=== PATIENT | male | born 1965 | race Caucasian/White ===

== ENCOUNTER 2023-09-03 02:48 | Emergency (ER) | payer OTHER, SELFPAY ==
[2023-09-03 02:51] VITALS: BP 153/86
--- NOTE | 2023-09-03 03:35 | ED.GENMED ---
History of Present Illness
General
Chief Complaint: Headache
Source: patient and family
Exam Limitations: none
Time Seen by Provider: 09/03/23 03:18
Nursing documentation reviewed up to this point in time: agreed with
Travel History
Have you had any contact with someone who has COVID-19?: No
Do you have any symptoms of coronavirus? Fever > 100 degrees, chills, cough, shortness of breath, sore throat, loss of taste or smell, muscle aches, or headache?: No
History of Present Illness
History of Present Illness:
58-year-old male presents with headache. He states that he had a cough for the last 4 to 5 days. He reports that today after coughing he developed a headache that waxes and wanes but returns each time he coughs. States that he was seen by his
primary care provider and started on an antibiotic and methylprednisolone. It was presumed that he had pneumonia. Denies fever, chills, nausea or vomiting. Reports no chest pain or shortness of breath. States that the cough is a dry cough.
Review of Systems
Review of Systems
Allergies reviewed?: Yes
All Other Systems: ROS reviewed and negative except as documented in HPI and ROS
Constitutional: Reports sleep disturbance
EENT: Reports no symptoms
Respiratory: Reports cough; Denies trouble breathing
Cardiac: Reports no symptoms
ABD/GI: Reports no symptoms
: Reports no symptoms
Musculoskeletal: Reports no symptoms
Skin: Reports no symptoms
Neurological: Reports no symptoms
Endocrine: Reports no symptoms
Hematologic/Lymphatic: Reports no symptoms
Psychiatric: Reports no symptoms
Phy Exam
General Physical Exam
General Presentation: well appearing
General age: appears stated age
General Skin: warm and dry
General Habitus: normal
General Mental: alert and anxious
Cardiovascular Exam
Cardiovascular Exam: regular rate/rhythm and no edema
Pulmonary Exam
Pulmonary Exam: lungs clear and no respiratory distress
Cough: coarse cough
Neurological Exam
Neurological Exam: alert and oriented x3
Musculoskeletal Exam
Musculoskeletal Exam: full ROM and neck pain
Skin Exam
Skin Exam: normal color and warm/dry
Psychiatric Exam
Psychiatric Exam: normal mood/affect
Course
Orders/Labs/Results
Orders:
Orders
09/03/23 03:33
0.9% Sodium Chloride 500 ml [Nss] 500 ml IV BOLUS
Dexamethasone Sod Phosphate [Decadron] 10 mg IV NOW STA
Diphenhydramine [Benadryl] 25 mg IV NOW STA
Metoclopramide [Reglan] 10 mg IV NOW STA
09/03/23 03:34
CT Head W/o Iv Contrast Urgent
Comment:
Reason For Exam: headache
CR Chest - 2 Views Urgent
Comment:
Reason For Exam: cough
09/03/23 03:49
Complete Blood Count/With Diff Urgent
Erythrocyte Sed Rate Urgent
PTT Urgent
Prothrombin Time Urgent
09/03/23 04:18
CMP [Comprehensive Metabolic Panel] Urgent
Abnormal Lab Results
09/03/23 09/03/23
03:49 04:18
WBC 17.4 H 10^3/uL
(4.8-10.8)
Hgb 11.0 L g/dL
(13.0-18.0)
Hct 35.1 L %
(39.0-52.0)
MCV 62.9 L fL
(80.0-94.0)
MCH 19.7 L pg
(27.0-31.0)
MCHC 31.3 L g/dL
(33.0-37.0)
RDW 15.7 H %
(11.5-14.5)
MPV 10.8 H fL
(7.4-10.4)
Abs Immat Gran (auto) 0.2 H 10^3/uL
(0-0.05)
Absolute Neuts (auto) 14.7 H 10^3/uL
(1.4-6.5)
Absolute Lymphs (auto) 1.1 L 10^3/uL
(1.2-3.4)
Absolute Monos (auto) 1.2 H 10^3/uL
(0.1-0.6)
Immature Gran % 1.4 H %
(0-0.5)
Neutrophils % 84.7 H %
(42.2-75.2)
Lymphocytes % 6.5 L %
(20.5-51.1)
ESR 57 H mm/hour
(0-20)
BUN 22 H mg/dl
(9-20)
Glucose 135 H mg/dl
(70-99)
09/03/23 03:49
09/03/23 04:18
Vital Signs
Initial and Last Documented VS:
Initial Vital Signs
Temp Pulse Resp BP Pulse Ox
98.1 F 92 18 153/86 95
09/03/23 02:51 09/03/23 02:51 09/03/23 02:51 09/03/23 02:51 09/03/23 02:51
Last Documented Vital Signs
Temp Pulse Resp BP Pulse Ox
98.1 F 80 18 165/93 95
09/03/23 02:51 09/03/23 04:36 09/03/23 04:36 09/03/23 04:36 09/03/23 04:36
MDM/Problems Addressed
Differential Diagnosis Includes:
Bronchitis, pneumonia, headache
*Critical Care Note
Total Time (30-74mins, 75-104mins- exclusive of procedures): Not Applicable
Update Note
Update Note:
CT head without IV contrast
IMPRESSION:
No hemorrhage or other acute intracranial abnormality.
Finalized at 4:50 AM EST
Patient does report some improvement in the headache. He will remain hydrated. He will continue to take his antibiotic for the pneumonia seen on x-ray.
ED Attending Note
-
Portions of this chart may have been created with voice recognition software.� Occasional wrong word or��sound alike� substitutions may have occurred due to the inherent limitations of voice recognition software.
Discharge Plan
Departure
Patient Disposition: Home (Routine Discharge)
Date of Disposition: 09/03/23
Time of Disposition: 05:46
Patient with high blood pressure during this ER visit?: No
Condition: Good
Discharge Problem:
Headache, Pneumonia
Instructions: BLOOD PRESSURE, Pneumonia
Prescriptions:
New
promethazine-codeine 6.25-10 mg/5 mL syrup
5 ml PO Q6H PRN (Reason: Cough) Qty: 118 0RF
No Action
cephalexin 500 MG capsule
500 mg PO QID Qty: 20 0RF
Referrals:
Pramod Esteban DO [Family Provider] -
Activity Restrictions/Additional Instructions:
Please continue your amoxicillin/clavulanate antibiotic as directed.
Interventions
Interventions:
*Risk Screen - Suicide Last Done: 09/03/23 02:51
*General Assessment Last Done: 09/03/23 02:51
*Neglect/Abuse Screening Last Done: 09/03/23 02:51
ED- Fall Risk Assessment Last Done: 09/03/23 02:51
*ED COVID-19 Vaccine History Last Done: 09/03/23 02:51
*Nursing Disposition Last Done: 09/03/23 06:19
ED- Neurological Assessment Last Done: 09/03/23 03:39
Discharge Date and Time
Discharge Date/Time: 09/03/23 06:21
Print Language: CITIZEN OF [place]
[2023-09-03] MEDS: DECADRON 10 MG IV (03:41)
[2023-09-03] MEDS: BENADRYL 25 MG IV (03:42)
[2023-09-03] MEDS: REGLAN 10 MG IV (03:42)
[2023-09-03] MEDS: NSS 500 IV (03:42)
[2023-09-03 04:03] LABS: % Basophils 0.2 % (0-2); % Eosinophils 0.1 % (0-6); % Immature Granulocytes 1.4 % (0-0.5); % Lymphocytes 6.5 % (20.5-51.1); % Monocytes 7.1 % (1.7-9.3); % Neutrophils 84.7 % (42.2-75.2); Absolute Immature Granulocytes 0.2 10^3/uL (0-0.05); Absolute Lymphocytes 1.1 10^3/uL (1.2-3.4); Absolute Monocytes 1.2 10^3/uL (0.1-0.6); Absolute Neutrophils 14.7 10^3/uL (1.4-6.5); Hematocrit 35.1 % (39.0-52.0); Mean Corp Hgb Conc. 31.3 g/dL (33.0-37.0); Mean Corpuscular Hgb 19.7 pg (27.0-31.0); Mean Corpuscular Volume 62.9 fL (80.0-94.0); Mean Platelet Volume 10.8 fL (7.4-10.4); Nucleated Red Blood Cells % 0 % (-); Platelet Count 314 10^3/uL (130-400); Red Blood Cell Count 5.58 10^6/uL (4.70-6.10); Red Cell Dist. Width 15.7 % (11.5-14.5); White Blood Cell Count 17.4 10^3/uL (4.8-10.8)
[2023-09-03 04:12] LABS: Erythrocyte Sed Rate 57 mm/hour (0-20)
[2023-09-03 04:15] LABS: INR 1.03; PT 13.5 Sec (11.4-14.6)
[2023-09-03 04:16] LABS: APTT 34.4 Sec (23.4-35.0)
[2023-09-03 04:36] VITALS: BP 165/93
[2023-09-03 04:37] LABS: ALT (SGPT) 40 U/L (0-50); AST (SGOT) 31 U/L (17-59); Albumin 4.4 g/dl (3.5-5.0); Alkaline Phosphatase 74 U/L (38-126); Blood Urea Nitrogen 22 mg/dl (9-20); Calcium 9.7 mg/dl (8.4-10.2); Carbon Dioxide 28 mmol/L (22-30); Chloride 106 mmol/L (98-107); Glucose 135 mg/dl (70-99); Potassium 4.4 mmol/L (3.5-5.1); Sodium 144 mmol/L (135-145); Total Bilirubin 0.5 mg/dl (0.2-1.3); Total Protein 7.3 g/dl (6.3-8.2); eGFR > 60.00
== END 2023-09-03 06:21 | disposition home or self-care (01) ==
LOC: EMR 02:48
PROVIDERS: EMERGENCY PHYSICIAN Student in an Organized Health Care Education/Training Program; FAMILY PHYSICIAN Family Medicine
DX: R51.9 Headache, unspecified (principal); J18.9 Pneumonia, unspecified organism
CPT/HCPCS: 99285; 96374; 96375 ×2; 96361 ×3; 70450; 71046; 80053; 85025; 85610; 85652; 85730